=== PATIENT | male | born 1970 | race Two or more races ===

== ENCOUNTER 2018-12-07 10:19 | Day surgery (SDC) | payer MEDICAID ==
[~2018-12-07] VITALS: Ht 180.3 cm; Wt 132.7 kg
[2018-12-07 10:28] VITALS: BP 131/67
[2018-12-07] MEDS ORDERED: MIDAZolam 5mg/5ml vial ONE (10:33)
[2018-12-07] MEDS ORDERED: fentaNYL/PF 50MCG/1 ML 2ML syringe ONE (10:33)
[2018-12-07] MEDS ORDERED: LIDOcaine Viscous 15ml cup ONE (10:33)
[2018-12-07] MEDS ORDERED: NO HOME MEDS (10:39)
[2018-12-07 10:58] VITALS: BP 121/79
[2018-12-07 11:08] VITALS: BP 117/73
[2018-12-07 11:18] VITALS: BP 110/60
[2018-12-07 11:28] VITALS: BP 110/72
== END 2018-12-07 11:30 | disposition home or self-care (01) ==
LOC: GI LAB 10:19
PROVIDERS: ATTEND Internal Medicine Gastroenterology
DX: I85.00 Esophageal varices without bleeding (principal); K22.8 Other specified diseases of esophagus; K76.6 Portal hypertension; K31.89 Other diseases of stomach and duodenum
CPT/HCPCS: 43244; 99152; J2250; J3010; J7030; A4620

== ENCOUNTER 2020-03-21 10:45 | Emergency (ER) | payer MEDICAID ==
[~2020-03-21] VITALS: Ht 180.3 cm; Wt 160.0 kg
[~2020-03-21 10:45] MED LIST: NO HOME MEDS
[2020-03-21 10:51] VITALS: BP 145/76
[2020-03-21] MEDS ORDERED: PENI500T2 PO (11:13)
== END 2020-03-21 11:26 | disposition home or self-care (01) ==
LOC: ER 10:46
DX: K02.9 Dental caries, unspecified (principal); F12.90 Cannabis use, unspecified, uncomplicated; Z79.899 Other long term (current) drug therapy
CPT/HCPCS: 99283

== ENCOUNTER 2021-12-23 09:00 | Emergency (ER) | payer MEDICAID ==
[~2021-12-23] VITALS: Ht 180.3 cm; Wt 146.8 kg
[2021-12-23 09:10] VITALS: BP 133/75
[2021-12-23] MEDS ORDERED: KEN0.1O TP (12:24)
== END 2021-12-23 12:43 | disposition home or self-care (01) ==
LOC: ER 09:00
DX: L23.9 Allergic contact dermatitis, unspecified cause (principal); D64.9 Anemia, unspecified; F12.10 Cannabis abuse, uncomplicated; Z87.19 Personal history of other diseases of the digestive system
CPT/HCPCS: 99283

== ENCOUNTER 2022-03-07 09:34 | Day surgery (SDC) | payer MEDICAID ==
[~2022-03-07] VITALS: Ht 180.3 cm; Wt 143.0 kg
[2022-03-07] MEDS ORDERED: fentaNYL/PF 50MCG/1 ML 2ML syringe ONE (09:38)
[2022-03-07] MEDS ORDERED: LIDOcaine Viscous 15ml cup ONE (09:38)
[2022-03-07] MEDS ORDERED: MIDAZolam 1 MG/ML 5ML VIAL ONE (09:38)
[2022-03-07 09:50] VITALS: BP 119/83
[2022-03-07 11:12] VITALS: BP 126/64
[2022-03-07 11:22] VITALS: BP 131/63
[2022-03-07 11:27] VITALS: BP 116/77
[2022-03-07 11:32] VITALS: BP 126/70
== END 2022-03-07 11:42 | disposition home or self-care (01) ==
LOC: GI LAB 09:34
PROVIDERS: ATTEND Internal Medicine Gastroenterology
DX: I85.00 Esophageal varices without bleeding (principal); K76.6 Portal hypertension; K31.89 Other diseases of stomach and duodenum
CPT/HCPCS: 43244; 99152; J2250; J3010; J7030; Z7512; A4620

== ENCOUNTER 2023-11-04 13:42 | Emergency (ER) | payer MEDICAID ==
[~2023-11-04] VITALS: Ht 180.3 cm; Wt 143.2 kg
[2023-11-04 14:14] VITALS: BP 117/73; PULSE 94; RESP 18; TEMP 98; O2SAT 98
[2023-11-04] MEDS: erythromycin ophthalmic ointment 1gm tube RIGHTEYE ONE (17:10)
[2023-11-04] MEDS: proparacaine 0.5% ophthalmic drops 15ml EACHEYE ONE (18:09)
[2023-11-04] MEDS: fluorescein sod 1mg ophthalmic strip RIGHTEYE ONE (18:10)
== END 2023-11-04 18:20 | disposition home or self-care (01) ==
LOC: ER 13:42
DX: H11.31 Conjunctival hemorrhage, right eye (principal); F12.90 Cannabis use, unspecified, uncomplicated
CPT/HCPCS: 99283

== ENCOUNTER → 2024-01-30 | Outpatient (CLI) | payer MEDICAID | END | disposition home or self-care (01) | LOC: RAD 08:08 | PROVIDERS: ATTEND Nurse Practitioner Family | DX: R16.1 Splenomegaly, not elsewhere classified (principal); K74.60 Unspecified cirrhosis of liver | CPT/HCPCS: 76700 ==

== ENCOUNTER 2024-04-28 16:56 | Inpatient (IN) | payer MEDICAID ==
[~2024-04-28] VITALS: Ht 180.3 cm; Wt 133.8 kg
[2024-04-28 17:47] LABS: BASOPHILS # (AUTO) 0.1 X10'3 (0-0.2); BASOPHILS % (AUTO) 1.4 % (0-1); EOSINOPHILS # (AUTO) 0.1 X10'3 (0-0.9); EOSINOPHILS % (AUTO) 0.7 % (0-6); HEMATOCRIT 40.1 % (42.0-52.0); HEMOGLOBIN 13.8 g/dl (14.0-17.9); LYMPHOCYTES # (AUTO) 0.7 X10'3 (1.1-4.8); LYMPHOCYTES % (AUTO) 8.7 % (21-51); MEAN CORPUSCULAR HEMOGLOBIN 35.3 PG (27.0-31.0); MEAN CORPUSCULAR HGB CONC 34.4 g/dL (33.0-36.5); MEAN CORPUSCULAR VOLUME 102.4 FL (78-98); MEAN PLATELET VOLUME 10.2 FL (7.4-10.4); MONOCYTES # (AUTO) 0.6 X10'3 (0-0.9); MONOCYTES % (AUTO) 7.9 % (2-12); NEUTROPHILS # (AUTO) 6.5 X10'3 (1.8-7.7); NEUTROPHILS % (AUTO) 81.3 % (42-75); RED BLOOD COUNT 3.91 X10'6 (4.70-6.10); RED CELL DISTRIBUTION WIDTH 15.7 % (11.5-14.5)
[2024-04-28 18:01] LABS: PLATELET COUNT 45 X10'3 (140-440)
[2024-04-28 18:08] LABS: ALANINE AMINOTRANSFERASE 32 U/L (12-78); ALBUMIN 2.4 G/DL (3.4-5.0); ALKALINE PHOSPHATASE 134 IU/L (46-116); ANION GAP 6 (8-16); BILIRUBIN,TOTAL 8.8 MG/DL (0.1-1.0); BLOOD UREA NITROGEN 13 MG/DL (7-18); BUN/CREATININE RATIO 22.8 (10.0-20.0); CHLORIDE 102 MMOL/L (99-107); CREATININE 0.57 MG/DL (0.60-1.10); GLUCOSE 128 MG/DL (70-104); SODIUM 131 MMOL/L (135-145); TOTAL CARBON DIOXIDE 23.1 MMOL/L (24-32); eCRCL 163 ML/MIN; eGFR > 90 ML/MIN
[2024-04-28 18:09] LABS: ALBUMIN/GLOBULIN RATIO 0.5 (1.1-1.5); ASPARTATE AMINO TRANSFERASE 56 U/L (10-37); POTASSIUM 4.7 MMOL/L (3.5-5.1); TOTAL PROTEIN 6.9 G/DL (6.4-8.2)
[2024-04-28 18:24] LABS: BILIRUBIN,URINE MODERATE (Neg); CLARITY,URINE CLOUDY (Clear); COLOR,URINE YELLOW (Yellow); GLUCOSE, URINE 100 mg/dl (Neg); KETONES,URINE TRACE mg/dl (Neg); LEUKOCYTE ESTERASE ,URINE NEGATIVE (Neg); OCCULT BLOOD,URINE TRACE-INTACT (Neg); PH,URINE 5.5 (4.8-8.0); PROTEIN,URINE 30 mg/dl (Neg)
[2024-04-28 18:30] LABS: NITRITES, URINE NEGATIVE (Neg); UA COLLECTION TYPE URINAL
[2024-04-28 18:31] LABS: MUCUS STRANDS MANY /LPF (Neg); SQUAMOUS EPITHELIAL CELL,UR MODERATE /LPF (FEW)
[2024-04-28 18:33] LABS: BACTERIA,URINE FEW /HPF (Neg); RBC,URINE 0-2 /HPF (0-2)
[2024-04-28] MEDS: LIDOcaine 1% W/epiNEPHrine 1:100,000 20ml vial SQ ONE (18:52)
[2024-04-28] MEDS: LIDOcaine 1% w/epiNEPHrine 1:200,000 30ml vial SQ ONE (18:58)
[2024-04-28] MEDS: piperacillin/tazo 3.375gm/50ml 50 ML IV SCH (19:36)
[2024-04-28 20:09] LABS: BFAPPEAR HAZY; BFCOLOR YELLOW; BFSOURCE OTHER; BFVOLUME 2 ML; LYMPHOCYTES,BODY FLUID 14 %; MONOCYTES,BODY FLUID 21 %; NEUTROPHILS,BODY FLUID 65 %
[2024-04-28 20:16] LABS: BF MESOTHELIAL CELLS MODERATE; BF RBC COUNT 2225 /CU MM; BF WBC COUNT 1885 /CU MM (0-1000)
[2024-04-28] MEDS: piperacillin/tazo 3.375gm/50ml 50 ML IV ONE (20:20)
[2024-04-28] MEDS ORDERED: acetaminophen 325mg tablet PO PRN (20:40)
[2024-04-28] MEDS ORDERED: HYDROcodone/acetaminophen 5mg/325mg tablet PO PRN (20:40)
[2024-04-28] MEDS ORDERED: mag hydrox/Alum hydrox/simeth 30ml oral suspension PO PRN (20:40)
[2024-04-28] MEDS ORDERED: potassium Cl 40MEQ/1/2NS 520ml 520 ML IV PRN (20:40)
[2024-04-28] MEDS ORDERED: magnesium sulf-water 2g/50mL 50 ML IV PRN (20:40)
[2024-04-28] MEDS ORDERED: magnesium hydroxide 30ml (MOM) UD suspension PO PRN (20:40)
[2024-04-28] MEDS ORDERED: potassium Cl 20 mEq SR tablet PO PRN ×2 (20:40)
[2024-04-28] MEDS ORDERED: magnesium sulf-water 4G/100mL 100 ML IV PRN (20:40)
[2024-04-28] MEDS: ondansetron/PF 4mg/2ml inj IV PRN (21:35)
[2024-04-28 21:37] LABS: APTT 36 SECONDS (22-32); INR 1.6 INR; PROTHROMBIN TIME 16.1 SECONDS (9.0-12.0)
[2024-04-28 22:10] LABS: HEMOGLOBIN A1C 4.7 % (4.5-6.2)
[2024-04-28] MEDS: morphine 2 MG/ML inj. syringe IV PRN (22:11)
[2024-04-28 22:16] LABS: MAGNESIUM 1.5 MG/DL (1.5-2.4)
[2024-04-29 02:31] LABS: NEUTROPHILS # (AUTO) 4.6 X10'3 (1.8-7.7)
[2024-04-29 02:33] LABS: BASOPHILS % (AUTO) 0.5 % (0-1); EOSINOPHILS % (AUTO) 0.8 % (0-6); HEMATOCRIT 34.5 % (42.0-52.0); LYMPHOCYTES # (AUTO) 0.6 X10'3 (1.1-4.8); LYMPHOCYTES % (AUTO) 10.7 % (21-51); MEAN CORPUSCULAR HGB CONC 34.9 g/dL (33.0-36.5); MEAN CORPUSCULAR VOLUME 100.4 FL (78-98); MEAN PLATELET VOLUME 9.7 FL (7.4-10.4); MONOCYTES # (AUTO) 0.7 X10'3 (0-0.9); MONOCYTES % (AUTO) 11.2 % (2-12); NEUTROPHILS % (AUTO) 76.8 % (42-75); RED BLOOD COUNT 3.44 X10'6 (4.70-6.10); RED CELL DISTRIBUTION WIDTH 15.8 % (11.5-14.5); WHITE BLOOD COUNT 6.1 X10'3 (4.5-11.0)
[2024-04-29 02:39] LABS: PLATELET COUNT 34 X10'3 (140-440)
[2024-04-29 02:40] LABS: ALANINE AMINOTRANSFERASE 23 U/L (12-78); ALBUMIN 2.2 G/DL (3.4-5.0); ALKALINE PHOSPHATASE 107 IU/L (46-116); ANION GAP -2 (8-16); ASPARTATE AMINO TRANSFERASE 34 U/L (10-37); BLOOD UREA NITROGEN 13 MG/DL (7-18); BUN/CREATININE RATIO 18.8 (10.0-20.0); CALCIUM 7.3 MG/DL (8.5-10.1); CHLORIDE 103 MMOL/L (99-107); CREATININE 0.69 MG/DL (0.60-1.10); GLUCOSE 130 MG/DL (70-104); HDL CHOLESTEROL 31 MG/DL (35-60); LDL CHOLESTEROL 42 MG/DL (50-100); MAGNESIUM 1.2 MG/DL (1.5-2.4); POTASSIUM 4.2 MMOL/L (3.5-5.1); SODIUM 132 MMOL/L (135-145); TOTAL CARBON DIOXIDE 30.7 MMOL/L (24-32); eCRCL 135 ML/MIN; eGFR > 90 ML/MIN
[2024-04-29 02:44] LABS: ALBUMIN/GLOBULIN RATIO 0.6 (1.1-1.5); CHOL/HDL RATIO 2.5 (0.00-4.99); CHOLESTEROL 78 MG/DL (0-200); TOTAL PROTEIN 6.1 G/DL (6.4-8.2); TRIGLYCERIDES 53 MG/DL (20-135)
[2024-04-29] MEDS: piperacillin/tazo 3.375gm/50ml 50 ML IV SCH (04:25)
[2024-04-29] MEDS: albumin (human) 25% 100ml IV 100 ML IV SCH (06:31)
[2024-04-29 07:05] VITALS: BP 116/82; PULSE 99; RESP 17; TEMP 97.8; O2SAT 95
[2024-04-29] MEDS: K and/or MAG REPLACEMENT MC SCH (08:00)
[2024-04-29] MEDS: docusate sod 100mg capsule PO SCH (08:00)
[2024-04-29] MEDS ORDERED: piperacillin/tazo 3.375gm/50ml 50 ML IV SCH (08:00)
[2024-04-29] MEDS: magnesium Cl slow-release 64mg tablet PO PRN (08:33)
[2024-04-29 09:26] LABS: ETHANOL < 10 MG/DL (<10)
[2024-04-29 10:00] VITALS: BP 107/58; PULSE 102; RESP 15; TEMP 97.9; O2SAT 94
[2024-04-29] MEDS: albumin (human) 25% 100ml IV 100 ML IV ONE (10:59)
[2024-04-29] MEDS: furosemide 40mg tablet PO SCH (11:14)
[2024-04-29 18:00] VITALS: BP 100/50; PULSE 103; RESP 18; TEMP 97.8; O2SAT 95
[2024-04-29 20:00] VITALS: RESP 16; O2SAT 98
[2024-04-29 22:00] VITALS: BP 112/68; PULSE 110; RESP 16; TEMP 97.8; O2SAT 98
[2024-04-30 03:09] LABS: URINE AMPHETAMINE SCREEN NEGATIVE (Neg); URINE BARBITUATE SCREEN NEGATIVE (Neg); URINE BENZODIAZEPINES SCREEN NEGATIVE (Neg); URINE CANNABINOID SCREEN POSITIVE (Neg); URINE COCAINE SCREEN NEGATIVE (Neg); URINE METHADONE SCREEN NEGATIVE (Neg); URINE OPIATE SCREEN NEGATIVE (Neg); URINE PHENCYCLIDINE SCREEN NEGATIVE (Neg)
[2024-04-30 06:00] VITALS: BP 116/67; PULSE 99; RESP 16; TEMP 98.5; O2SAT 95
[2024-04-30 07:51] LABS: BASOPHILS % (AUTO) 0.7 % (0-1); EOSINOPHILS # (AUTO) 0.1 X10'3 (0-0.9); HEMOGLOBIN 11.6 g/dl (14.0-17.9); LYMPHOCYTES # (AUTO) 0.6 X10'3 (1.1-4.8); MONOCYTES # (AUTO) 0.4 X10'3 (0-0.9); NEUTROPHILS # (AUTO) 2.2 X10'3 (1.8-7.7); WHITE BLOOD COUNT 3.3 X10'3 (4.5-11.0)
[2024-04-30 07:53] LABS: EOSINOPHILS % (AUTO) 2.8 % (0-6); HEMATOCRIT 33.6 % (42.0-52.0); LYMPHOCYTES % (AUTO) 16.7 % (21-51); MEAN CORPUSCULAR HEMOGLOBIN 35.1 PG (27.0-31.0); MEAN CORPUSCULAR HGB CONC 34.4 g/dL (33.0-36.5); MEAN CORPUSCULAR VOLUME 101.9 FL (78-98); MEAN PLATELET VOLUME 10.1 FL (7.4-10.4); MONOCYTES % (AUTO) 12.3 % (2-12); NEUTROPHILS % (AUTO) 67.5 % (42-75); RED CELL DISTRIBUTION WIDTH 15.8 % (11.5-14.5)
[2024-04-30 08:06] LABS: PLATELET COUNT 39 X10'3 (140-440)
[2024-04-30 08:15] LABS: ALANINE AMINOTRANSFERASE 19 U/L (12-78); ALBUMIN 2.7 G/DL (3.4-5.0); ALKALINE PHOSPHATASE 96 IU/L (46-116); ANION GAP 4 (8-16); ASPARTATE AMINO TRANSFERASE 31 U/L (10-37); BILIRUBIN,TOTAL 4.9 MG/DL (0.1-1.0); BLOOD UREA NITROGEN 11 MG/DL (7-18); BUN/CREATININE RATIO 17.5 (10.0-20.0); CALCIUM 7.6 MG/DL (8.5-10.1); CHLORIDE 102 MMOL/L (99-107); CREATININE 0.63 MG/DL (0.60-1.10); GLUCOSE 100 MG/DL (70-104); MAGNESIUM 1.8 MG/DL (1.5-2.4); POTASSIUM 3.9 MMOL/L (3.5-5.1); SODIUM 133 MMOL/L (135-145); TOTAL CARBON DIOXIDE 27.1 MMOL/L (24-32); eCRCL 148 ML/MIN; eGFR > 90 ML/MIN
[2024-04-30 08:17] LABS: ALBUMIN/GLOBULIN RATIO 0.8 (1.1-1.5); PHOSPHORUS 2.6 MG/DL (2.3-4.5); TOTAL PROTEIN 6.1 G/DL (6.4-8.2)
[2024-04-30 08:19] LABS: OCCULT BLOOD STOOL NEGATIVE (Neg)
[2024-04-30 10:00] VITALS: BP 123/69; PULSE 100; RESP 16; TEMP 98.4; O2SAT 93
[2024-04-30 18:00] VITALS: BP 115/65; PULSE 104; RESP 17; TEMP 99.2; O2SAT 96
[2024-04-30 20:00] VITALS: RESP 16; O2SAT 95
[2024-05-01 06:00] VITALS: BP 124/65; PULSE 91; RESP 16; TEMP 98.8; O2SAT 96
[2024-05-01 08:00] VITALS: RESP 16; O2SAT 96
[2024-05-01 08:34] LABS: BASOPHILS % (AUTO) 0.9 % (0-1); EOSINOPHILS # (AUTO) 0.1 X10'3 (0-0.9); EOSINOPHILS % (AUTO) 3.5 % (0-6); HEMATOCRIT 35.3 % (42.0-52.0); LYMPHOCYTES # (AUTO) 0.5 X10'3 (1.1-4.8); LYMPHOCYTES % (AUTO) 21.3 % (21-51); MEAN CORPUSCULAR HEMOGLOBIN 34.5 PG (27.0-31.0); MEAN CORPUSCULAR VOLUME 101.4 FL (78-98); MEAN PLATELET VOLUME 10.2 FL (7.4-10.4); MONOCYTES # (AUTO) 0.4 X10'3 (0-0.9); MONOCYTES % (AUTO) 16.6 % (2-12); NEUTROPHILS # (AUTO) 1.5 X10'3 (1.8-7.7); NEUTROPHILS % (AUTO) 57.7 % (42-75); RED BLOOD COUNT 3.48 X10'6 (4.70-6.10); RED CELL DISTRIBUTION WIDTH 15.8 % (11.5-14.5); WHITE BLOOD COUNT 2.5 X10'3 (4.5-11.0)
[2024-05-01 08:41] LABS: PLATELET COUNT 40 X10'3 (140-440)
[2024-05-01 09:01] LABS: ALANINE AMINOTRANSFERASE 23 U/L (12-78); ALBUMIN 2.5 G/DL (3.4-5.0); ALBUMIN/GLOBULIN RATIO 0.7 (1.1-1.5); ALKALINE PHOSPHATASE 109 IU/L (46-116); ANION GAP 6 (8-16); ASPARTATE AMINO TRANSFERASE 43 U/L (10-37); BILIRUBIN,TOTAL 3.2 MG/DL (0.1-1.0); BLOOD UREA NITROGEN 8 MG/DL (7-18); BUN/CREATININE RATIO 14.5 (10.0-20.0); CALCIUM 7.9 MG/DL (8.5-10.1); CHLORIDE 102 MMOL/L (99-107); CREATININE 0.55 MG/DL (0.60-1.10); GLUCOSE 92 MG/DL (70-104); MAGNESIUM 1.6 MG/DL (1.5-2.4); PHOSPHORUS 3.1 MG/DL (2.3-4.5); POTASSIUM 3.7 MMOL/L (3.5-5.1); SODIUM 135 MMOL/L (135-145); TOTAL CARBON DIOXIDE 27.2 MMOL/L (24-32); eCRCL 169 ML/MIN; eGFR > 90 ML/MIN
[2024-05-01 10:32] LABS: ANISOCYTOSIS 1+; PLATELET ESTIMATE DECREASED; TOTAL CELLS COUNTED 100
[2024-05-01] MEDS: normal saline 500ml IV soln 500 ML IV SCH (17:05)
[2024-05-01 18:00] VITALS: BP 113/64; PULSE 95; RESP 16; TEMP 97.2; O2SAT 96
[2024-05-01 22:00] VITALS: BP 108/67; PULSE 94; RESP 19; TEMP 98.8; O2SAT 94
[2024-05-02 05:59] VITALS: BP 110/66; PULSE 89; RESP 16; TEMP 98; O2SAT 98
[2024-05-02 06:38] LABS: BASOPHILS % (AUTO) 1.5 % (0-1); EOSINOPHILS # (AUTO) 0.1 X10'3 (0-0.9); EOSINOPHILS % (AUTO) 4.3 % (0-6); HEMATOCRIT 35.1 % (42.0-52.0); HEMOGLOBIN 12.1 g/dl (14.0-17.9); LYMPHOCYTES # (AUTO) 0.7 X10'3 (1.1-4.8); LYMPHOCYTES % (AUTO) 26.6 % (21-51); MEAN CORPUSCULAR HGB CONC 34.4 g/dL (33.0-36.5); MEAN CORPUSCULAR VOLUME 101.7 FL (78-98); MEAN PLATELET VOLUME 9.8 FL (7.4-10.4); MONOCYTES # (AUTO) 0.4 X10'3 (0-0.9); MONOCYTES % (AUTO) 14.3 % (2-12); NEUTROPHILS # (AUTO) 1.4 X10'3 (1.8-7.7); NEUTROPHILS % (AUTO) 53.3 % (42-75); RED BLOOD COUNT 3.45 X10'6 (4.70-6.10); WHITE BLOOD COUNT 2.7 X10'3 (4.5-11.0)
[2024-05-02 06:40] LABS: PLATELET COUNT 45 X10'3 (140-440)
[2024-05-02 06:43] LABS: ALANINE AMINOTRANSFERASE 25 U/L (12-78); ALBUMIN 2.4 G/DL (3.4-5.0); ALBUMIN/GLOBULIN RATIO 0.7 (1.1-1.5); ALKALINE PHOSPHATASE 125 IU/L (46-116); ANION GAP 3 (8-16); ASPARTATE AMINO TRANSFERASE 51 U/L (10-37); BILIRUBIN,TOTAL 2.7 MG/DL (0.1-1.0); BLOOD UREA NITROGEN 10 MG/DL (7-18); BUN/CREATININE RATIO 15.9 (10.0-20.0); CALCIUM 7.8 MG/DL (8.5-10.1); CHLORIDE 104 MMOL/L (99-107); CREATININE 0.63 MG/DL (0.60-1.10); GLUCOSE 97 MG/DL (70-104); MAGNESIUM 1.7 MG/DL (1.5-2.4); PHOSPHORUS 3.6 MG/DL (2.3-4.5); POTASSIUM 3.7 MMOL/L (3.5-5.1); SODIUM 135 MMOL/L (135-145); TOTAL CARBON DIOXIDE 28.1 MMOL/L (24-32); eCRCL 148 ML/MIN; eGFR > 90 ML/MIN
[2024-05-02 07:34] LABS: ANISOCYTOSIS 1+; PLATELET ESTIMATE DECREASED; TOTAL CELLS COUNTED 100
[2024-05-02 08:00] VITALS: RESP 16; O2SAT 94
[2024-05-02] MEDS ORDERED: METR-159 PO (09:07)
[2024-05-02] MEDS ORDERED: CIPR250T4 PO (09:07)
[2024-05-02] MEDS ORDERED: FURO40TA4 PO (09:08)
== END 2024-05-02 10:50 | disposition home or self-care (01) | DRG 248 ==
LOC: ER 16:56 → ED HOLD 20:45 → EDBEDREQ 04-29 05:26 → ORTHO 4S 04-29 06:45
PROVIDERS: ADMIT Internal Medicine Pulmonary Disease; ATTEND Family Medicine
PROC: 0W9G3ZZ Drainage of Peritoneal Cavity, Percutaneous Approach (ICD-10-PCS; principal; 2024-04-30)
DX: K65.2 Spontaneous bacterial peritonitis (principal); D69.6 Thrombocytopenia, unspecified; K70.31 Alcoholic cirrhosis of liver with ascites; E87.1 Hypo-osmolality and hyponatremia; K76.6 Portal hypertension; B19.20 Unspecified viral hepatitis C without hepatic coma; E80.6 Other disorders of bilirubin metabolism; F10.90 Alcohol use, unspecified, uncomplicated; Y90.0 Blood alcohol level of less than 20 mg/100 ml; F12.90 Cannabis use, unspecified, uncomplicated
CPT/HCPCS: 36415; 71045; 76700; 76705; 80053; 80061; 80305; 80320; 81001; 82042; 82272; 83036; 83605; 83690; 83735; 83880; 84100; 84145; 85007; 85025; 85610; 85730; 86705; 86803; 87040; 87070; 87077; 87081; 87088; 87186; 87340; 87517; 87522; 89051; 99285; G0378; J2270; J2405; J2543; J7040; P9047

== ENCOUNTER 2024-06-02 07:24 | Emergency (ER) | payer MEDICAID ==
[~2024-06-02] VITALS: Ht 180.3 cm; Wt 136.8 kg
[~2024-06-02 07:24] MED LIST changes: +CIPR250T4 PO; +FURO40TA4 PO
[2024-06-02 08:46] LABS: ALANINE AMINOTRANSFERASE 40 U/L (12-78); ALBUMIN 2.5 G/DL (3.4-5.0); ALKALINE PHOSPHATASE 163 IU/L (46-116); ANION GAP 6 (8-16); ASPARTATE AMINO TRANSFERASE 67 U/L (10-37); BILIRUBIN,TOTAL 4.3 MG/DL (0.1-1.0); BLOOD UREA NITROGEN 12 MG/DL (7-18); BUN/CREATININE RATIO 18.5 (10.0-20.0); CHLORIDE 104 MMOL/L (99-107); CREATININE 0.65 MG/DL (0.60-1.10); GLUCOSE 110 MG/DL (70-104); LIPASE 30 U/L (16-77); POTASSIUM 3.7 MMOL/L (3.5-5.1); SODIUM 136 MMOL/L (135-145); TOTAL CARBON DIOXIDE 25.8 MMOL/L (24-32); eCRCL 142 ML/MIN; eGFR > 90 ML/MIN
[2024-06-02 08:49] LABS: BASOPHILS % (AUTO) 1.2 % (0-1); EOSINOPHILS % (AUTO) 1.1 % (0-6); HEMATOCRIT 39.8 % (42.0-52.0); HEMOGLOBIN 13.5 g/dl (14.0-17.9); LYMPHOCYTES # (AUTO) 0.6 X10'3 (1.1-4.8); LYMPHOCYTES % (AUTO) 18.9 % (21-51); MEAN CORPUSCULAR HEMOGLOBIN 34.9 PG (27.0-31.0); MEAN CORPUSCULAR HGB CONC 33.8 g/dL (33.0-36.5); MEAN CORPUSCULAR VOLUME 103.3 FL (78-98); MEAN PLATELET VOLUME 10.2 FL (7.4-10.4); MONOCYTES # (AUTO) 0.2 X10'3 (0-0.9); NEUTROPHILS # (AUTO) 2.5 X10'3 (1.8-7.7); NEUTROPHILS % (AUTO) 72.8 % (42-75); RED BLOOD COUNT 3.85 X10'6 (4.70-6.10); RED CELL DISTRIBUTION WIDTH 16.1 % (11.5-14.5); WHITE BLOOD COUNT 3.4 X10'3 (4.5-11.0)
[2024-06-02 08:52] LABS: PLATELET COUNT 41 X10'3 (140-440)
[2024-06-02 08:56] LABS: ALBUMIN/GLOBULIN RATIO 0.5 (1.1-1.5); TOTAL PROTEIN 7.3 G/DL (6.4-8.2)
[2024-06-02 09:17] LABS: APTT 30 SECONDS (22-32); INR 1.5 INR; PROTHROMBIN TIME 15.2 SECONDS (9.0-12.0)
[2024-06-02 10:34] LABS: BILIRUBIN,URINE NEGATIVE (Neg); CLARITY,URINE SLIGHTLY CLOUDY (Clear); COLOR,URINE YELLOW (Yellow); GLUCOSE, URINE NEGATIVE (Neg); KETONES,URINE NEGATIVE (Neg); LEUKOCYTE ESTERASE ,URINE NEGATIVE (Neg); NITRITES, URINE NEGATIVE (Neg); OCCULT BLOOD,URINE NEGATIVE (Neg); PH,URINE 6.5 (4.8-8.0); PROTEIN,URINE NEGATIVE (Neg); UROBILINOGEN,URINE 0.2 E.U/dL (0.2-1.0)
[2024-06-02 10:43] LABS: UA COLLECTION TYPE CLN CATCH MIDSTREAM
[2024-06-02 10:45] LABS: BACTERIA,URINE FEW /HPF (Neg); MUCUS STRANDS MODERATE /LPF (Neg); RBC,URINE 0-2 /HPF (0-2); SQUAMOUS EPITHELIAL CELL,UR MANY /LPF (FEW); WBC,URINE 0-4 /HPF (0-4)
[2024-06-02 11:39] VITALS: BP 138/78; PULSE 78; RESP 16; TEMP 98.1; O2SAT 97
[2024-06-02 13:00] LABS: OCCULT BLOOD STOOL NEGATIVE (Neg)
== END 2024-06-02 11:40 | disposition home or self-care (01) ==
LOC: ER 07:25
DX: K74.69 Other cirrhosis of liver (principal); D64.9 Anemia, unspecified; F12.90 Cannabis use, unspecified, uncomplicated; Z72.89 Other problems related to lifestyle; Z79.2 Long term (current) use of antibiotics; Z79.899 Other long term (current) drug therapy
CPT/HCPCS: 36415; 80053; 81001; 82272; 83690; 85025; 85610; 85730; 99283; J7030

== ENCOUNTER 2024-07-21 09:12 | Emergency (ER) | payer MEDICAID ==
[~2024-07-21] VITALS: Ht 180.3 cm; Wt 134.6 kg
[2024-07-21 09:14] VITALS: TEMP 97.8
[2024-07-21] MEDS: ondansetron 4mg rapidly disintigrating tab PO ONE (09:56)
[2024-07-21] MEDS: oxyCODONE SR 10mg (sust. release) tab PO ONE (09:56)
[2024-07-21] MEDS: ketorolac trometh 30MG/ML vial 30 MG/ML VIAL IM ONE (09:57)
[2024-07-21] MEDS ORDERED: OXYC-658 PO (10:01)
[2024-07-21 10:16] VITALS: BP 109/69; PULSE 103; RESP 18; O2SAT 96
== END 2024-07-21 10:17 | disposition home or self-care (01) ==
LOC: ER 09:12
DX: R10.9 Unspecified abdominal pain (principal); F12.90 Cannabis use, unspecified, uncomplicated; Z79.1 Long term (current) use of non-steroidal anti-inflammatories (NSAID); Z79.899 Other long term (current) drug therapy; V89.2XXA Person injured in unspecified motor-vehicle accident, traffic, initial encounter; Y93.89 Activity, other specified; Y92.410 Unspecified street and highway as the place of occurrence of the external cause; Y99.8 Other external cause status
CPT/HCPCS: 96372; 99283; J1885

== ENCOUNTER 2024-08-17 11:28 | Emergency (ER) | payer MEDICAID ==
[~2024-08-17] VITALS: Ht 180.3 cm; Wt 126.7 kg
[2024-08-17 11:47] VITALS: BP 117/76; PULSE 88; RESP 16; TEMP 97.4; O2SAT 98
[2024-08-17 12:24] LABS: BASOPHILS % (AUTO) 0.6 % (0-1); EOSINOPHILS % (AUTO) 0.7 % (0-6); HEMATOCRIT 38.6 % (42.0-52.0); HEMOGLOBIN 13.8 g/dl (14.0-17.9); LYMPHOCYTES # (AUTO) 0.5 X10'3 (1.1-4.8); LYMPHOCYTES % (AUTO) 10.6 % (21-51); MEAN CORPUSCULAR HEMOGLOBIN 36.6 PG (27.0-31.0); MEAN CORPUSCULAR HGB CONC 35.7 g/dL (33.0-36.5); MEAN CORPUSCULAR VOLUME 102.3 FL (78-98); MEAN PLATELET VOLUME 10.2 FL (7.4-10.4); MONOCYTES # (AUTO) 0.3 X10'3 (0-0.9); MONOCYTES % (AUTO) 7.2 % (2-12); NEUTROPHILS # (AUTO) 3.8 X10'3 (1.8-7.7); NEUTROPHILS % (AUTO) 80.9 % (42-75); RED BLOOD COUNT 3.77 X10'6 (4.70-6.10); RED CELL DISTRIBUTION WIDTH 16.1 % (11.5-14.5); WHITE BLOOD COUNT 4.7 X10'3 (4.5-11.0)
[2024-08-17 12:48] LABS: ALANINE AMINOTRANSFERASE 45 U/L (12-78); ALBUMIN 2.3 G/DL (3.4-5.0); ASPARTATE AMINO TRANSFERASE 73 U/L (10-37); BILIRUBIN,TOTAL 5.8 MG/DL (0.1-1.0); TOTAL CARBON DIOXIDE 26.2 MMOL/L (24-32)
[2024-08-17 12:49] LABS: PRO BRAIN NATRIURETIC PEPTIDE 32 PG/ML (0-125)
[2024-08-17 12:56] LABS: ALBUMIN/GLOBULIN RATIO 0.4 (1.1-1.5); ALKALINE PHOSPHATASE 209 IU/L (46-116); ANION GAP 7 (8-16); BLOOD UREA NITROGEN 13 MG/DL (7-18); CHLORIDE 101 MMOL/L (99-107); CREATININE 0.59 MG/DL (0.60-1.10); GLUCOSE 105 MG/DL (70-104); POTASSIUM 4.1 MMOL/L (3.5-5.1); SODIUM 134 MMOL/L (135-145); TOTAL PROTEIN 8.1 G/DL (6.4-8.2); eCRCL 156 ML/MIN; eGFR > 90 ML/MIN
[2024-08-17 12:57] LABS: PLATELET COUNT 42 X10'3 (140-440)
[2024-08-17] MEDS ORDERED: FURO-150 PO (14:26)
[2024-08-17] MEDS ORDERED: iohexol 300mg/ml 100ml inj. ONE (14:33)
[2024-08-17 15:15] LABS: BASOPHILS % (AUTO) 0.7 % (0-1); HEMATOCRIT 38.2 % (42.0-52.0); HEMOGLOBIN 13.6 g/dl (14.0-17.9); LYMPHOCYTES # (AUTO) 0.5 X10'3 (1.1-4.8); LYMPHOCYTES % (AUTO) 10.2 % (21-51); MEAN CORPUSCULAR HEMOGLOBIN 36.3 PG (27.0-31.0); MEAN CORPUSCULAR HGB CONC 35.5 g/dL (33.0-36.5); MONOCYTES # (AUTO) 0.3 X10'3 (0-0.9); MONOCYTES % (AUTO) 6.4 % (2-12); NEUTROPHILS % (AUTO) 81.7 % (42-75); RED BLOOD COUNT 3.74 X10'6 (4.70-6.10); RED CELL DISTRIBUTION WIDTH 16.1 % (11.5-14.5); WHITE BLOOD COUNT 4.9 X10'3 (4.5-11.0)
[2024-08-17 15:20] LABS: PLATELET COUNT 41 X10'3 (140-440)
[2024-08-17 15:29] LABS: INR 1.5 INR; PROTHROMBIN TIME 15.6 SECONDS (9.0-12.0)
[2024-08-17 15:30] LABS: MAGNESIUM 1.7 MG/DL (1.5-2.4)
[2024-08-17] MEDS: CefTRIAXone 2gm/D5W 50ml BAG 50 ML IV ONE (19:16)
[2024-08-17] MEDS: azithromycin/NS 500mg/250ml 250 ML IV ONE (19:17)
== END 2024-08-17 21:36 | disposition short-term general hospital (02) ==
LOC: ER 11:29
DX: S27.329A Contusion of lung, unspecified, initial encounter (principal); Z79.899 Other long term (current) drug therapy; F12.90 Cannabis use, unspecified, uncomplicated; J94.2 Hemothorax; K74.60 Unspecified cirrhosis of liver; K76.6 Portal hypertension; Z79.2 Long term (current) use of antibiotics; X58.XXXA Exposure to other specified factors, initial encounter; Y93.89 Activity, other specified; Y92.89 Other specified places as the place of occurrence of the external cause; Y99.8 Other external cause status
CPT/HCPCS: 36415; 70450; 71045; 71250; 74176; 80053; 82140; 83690; 83735; 83880; 84484; 85025; 85610; 93005; 96365; 96368; 99291; J0456; J0696; A6258; A6449; Q9967

== ENCOUNTER 2024-08-20 17:40 | Emergency (ER) | payer MEDICAID ==
[~2024-08-20] VITALS: Ht 180.3 cm; Wt 131.4 kg
[~2024-08-20 17:40] MED LIST changes: +FURO-150 PO; -FURO40TA4 PO; -NO HOME MEDS
[2024-08-20 17:54] VITALS: TEMP 98.2
[2024-08-20 20:23] LABS: BASOPHILS % (AUTO) 0.8 % (0-1); EOSINOPHILS # (AUTO) 0.1 X10'3 (0-0.9); EOSINOPHILS % (AUTO) 1.5 % (0-6); HEMATOCRIT 36.2 % (42.0-52.0); HEMOGLOBIN 12.7 g/dl (14.0-17.9); LYMPHOCYTES # (AUTO) 0.5 X10'3 (1.1-4.8); LYMPHOCYTES % (AUTO) 11.9 % (21-51); MEAN CORPUSCULAR HEMOGLOBIN 35.9 PG (27.0-31.0); MEAN CORPUSCULAR HGB CONC 35.2 g/dL (33.0-36.5); MONOCYTES # (AUTO) 0.4 X10'3 (0-0.9); MONOCYTES % (AUTO) 9.1 % (2-12); NEUTROPHILS # (AUTO) 3.5 X10'3 (1.8-7.7); NEUTROPHILS % (AUTO) 76.7 % (42-75); RED BLOOD COUNT 3.54 X10'6 (4.70-6.10); RED CELL DISTRIBUTION WIDTH 15.8 % (11.5-14.5); WHITE BLOOD COUNT 4.5 X10'3 (4.5-11.0)
[2024-08-20 20:29] LABS: PLATELET COUNT 40 X10'3 (140-440)
[2024-08-20 20:49] LABS: ALANINE AMINOTRANSFERASE 42 U/L (12-78); ALBUMIN 2.1 G/DL (3.4-5.0); ALKALINE PHOSPHATASE 205 IU/L (46-116); ANION GAP 5 (8-16); ASPARTATE AMINO TRANSFERASE 66 U/L (10-37); BILIRUBIN,TOTAL 4.1 MG/DL (0.1-1.0); BLOOD UREA NITROGEN 14 MG/DL (7-18); BUN/CREATININE RATIO 26.9 (10.0-20.0); CALCIUM 7.8 MG/DL (8.5-10.1); CHLORIDE 103 MMOL/L (99-107); CREATININE 0.52 MG/DL (0.60-1.10); GLUCOSE 107 MG/DL (70-104); LIPASE 30 U/L (16-77); POTASSIUM 4.1 MMOL/L (3.5-5.1); SODIUM 134 MMOL/L (135-145); TOTAL CARBON DIOXIDE 26.2 MMOL/L (24-32); eCRCL 177 ML/MIN; eGFR > 90 ML/MIN
[2024-08-20 20:54] LABS: ALBUMIN/GLOBULIN RATIO 0.4 (1.1-1.5); TOTAL PROTEIN 7.5 G/DL (6.4-8.2)
[2024-08-20 21:25] LABS: INR 1.5 INR; PROTHROMBIN TIME 15.6 SECONDS (9.0-12.0)
[2024-08-20] MEDS ORDERED: FURO40TA4 PO (22:07)
[2024-08-20] MEDS ORDERED: SPIR50TA5 PO (22:07)
[2024-08-20 22:23] LABS: BILIRUBIN,URINE SMALL (Neg); CLARITY,URINE CLEAR (Clear); COLOR,URINE YELLOW (Yellow); GLUCOSE, URINE NEGATIVE (Neg); KETONES,URINE NEGATIVE (Neg); LEUKOCYTE ESTERASE ,URINE NEGATIVE (Neg); OCCULT BLOOD,URINE NEGATIVE (Neg); PH,URINE 6.5 (4.8-8.0); PROTEIN,URINE TRACE mg/dl (Neg); UROBILINOGEN,URINE 0.2 E.U/dL (0.2-1.0)
[2024-08-20] MEDS ORDERED: CEPH-585 PO (22:32)
[2024-08-20 22:48] VITALS: BP 112/74; PULSE 78; RESP 15; O2SAT 99
[2024-08-20] MEDS: cephalexin 250mg capsule PO ONE (22:48)
[2024-08-20 22:52] LABS: BACTERIA,URINE NONE SEEN /HPF (Neg); NITRITES, URINE NEGATIVE (Neg); RBC,URINE 0-2 /HPF (0-2); SQUAMOUS EPITHELIAL CELL,UR NONE SEEN /LPF (FEW); UA COLLECTION TYPE NON-SPECIFIED; WBC,URINE NONE SEEN /HPF (0-4)
== END 2024-08-20 22:50 | disposition home or self-care (01) ==
LOC: ER 17:41
DX: R18.8 Other ascites (principal); N39.0 Urinary tract infection, site not specified; F12.90 Cannabis use, unspecified, uncomplicated; Z79.2 Long term (current) use of antibiotics; Z79.899 Other long term (current) drug therapy
CPT/HCPCS: 36415; 49083; 80053; 81001; 83690; 85025; 85610; 99285

== ENCOUNTER 2024-08-25 18:34 | Emergency (ER) | payer MEDICAID ==
[~2024-08-25] VITALS: Ht 180.3 cm; Wt 117.0 kg
[~2024-08-25 18:34] MED LIST changes: +CEPH-585 PO; +FURO40TA4 PO; +SPIR50TA5 PO
[2024-08-25 18:35] VITALS: TEMP 97.5
[2024-08-25 19:12] LABS: EOSINOPHILS % (AUTO) 1.1 % (0-6); HEMOGLOBIN 13.3 g/dl (14.0-17.9); LYMPHOCYTES # (AUTO) 0.6 X10'3 (1.1-4.8); MONOCYTES # (AUTO) 0.4 X10'3 (0-0.9)
[2024-08-25 19:13] LABS: BASOPHILS % (AUTO) 0.7 % (0-1); HEMATOCRIT 37.2 % (42.0-52.0); LYMPHOCYTES % (AUTO) 16.5 % (21-51); MEAN CORPUSCULAR HEMOGLOBIN 36.4 PG (27.0-31.0); MEAN CORPUSCULAR HGB CONC 35.9 g/dL (33.0-36.5); MEAN CORPUSCULAR VOLUME 101.5 FL (78-98); MEAN PLATELET VOLUME 9.6 FL (7.4-10.4); MONOCYTES % (AUTO) 11.5 % (2-12); NEUTROPHILS # (AUTO) 2.6 X10'3 (1.8-7.7); NEUTROPHILS % (AUTO) 70.2 % (42-75); RED BLOOD COUNT 3.67 X10'6 (4.70-6.10); RED CELL DISTRIBUTION WIDTH 16.1 % (11.5-14.5); WHITE BLOOD COUNT 3.7 X10'3 (4.5-11.0)
[2024-08-25 19:21] LABS: PLATELET COUNT 38 X10'3 (140-440)
[2024-08-25 19:28] LABS: ALANINE AMINOTRANSFERASE 40 U/L (12-78); ALKALINE PHOSPHATASE 210 IU/L (46-116); ANION GAP 3 (8-16); ASPARTATE AMINO TRANSFERASE 65 U/L (10-37); BILIRUBIN,TOTAL 3.8 MG/DL (0.1-1.0); BLOOD UREA NITROGEN 19 MG/DL (7-18); BUN/CREATININE RATIO 31.1 (10.0-20.0); CALCIUM 8.1 MG/DL (8.5-10.1); CHLORIDE 102 MMOL/L (99-107); CREATININE 0.61 MG/DL (0.60-1.10); GLUCOSE 106 MG/DL (70-104); LIPASE 41 U/L (16-77); SODIUM 133 MMOL/L (135-145); TOTAL CARBON DIOXIDE 27.6 MMOL/L (24-32); eCRCL 151 ML/MIN; eGFR > 90 ML/MIN
[2024-08-25 19:29] LABS: ALBUMIN/GLOBULIN RATIO 0.4 (1.1-1.5); POTASSIUM 4.2 MMOL/L (3.5-5.1); TOTAL PROTEIN 7.7 G/DL (6.4-8.2)
[2024-08-25 21:08] LABS: BILIRUBIN,URINE NEGATIVE (Neg); CLARITY,URINE CLEAR (Clear); COLOR,URINE YELLOW (Yellow); GLUCOSE, URINE NEGATIVE (Neg); KETONES,URINE NEGATIVE (Neg); LEUKOCYTE ESTERASE ,URINE NEGATIVE (Neg); NITRITES, URINE NEGATIVE (Neg); OCCULT BLOOD,URINE NEGATIVE (Neg); PROTEIN,URINE NEGATIVE (Neg); UROBILINOGEN,URINE 0.2 E.U/dL (0.2-1.0)
[2024-08-25 21:13] LABS: UA COLLECTION TYPE CLN CATCH MIDSTREAM
[2024-08-25 21:26] VITALS: BP 122/73; PULSE 94; RESP 20; O2SAT 97
== END 2024-08-25 21:28 | disposition home or self-care (01) ==
LOC: ER 18:35
DX: R10.84 Generalized abdominal pain (principal); F10.90 Alcohol use, unspecified, uncomplicated; F12.90 Cannabis use, unspecified, uncomplicated; Y90.9 Presence of alcohol in blood, level not specified
CPT/HCPCS: 36415; 80053; 81003; 83690; 85025; 99283

== ENCOUNTER 2024-12-06 19:03 | Emergency (ER) | payer MEDICAID ==
[~2024-12-06] VITALS: Ht 180.3 cm; Wt 121.8 kg
[~2024-12-06 19:03] MED LIST changes: -FURO40TA4 PO
[2024-12-06 19:08] VITALS: TEMP 98.4
[2024-12-06 19:35] LABS: BASOPHILS % (AUTO) 0.8 % (0-1); EOSINOPHILS # (AUTO) 0.1 X10'3 (0-0.9); EOSINOPHILS % (AUTO) 1.2 % (0-6); HEMATOCRIT 36.9 % (42.0-52.0); HEMOGLOBIN 13.1 g/dl (14.0-17.9); LYMPHOCYTES # (AUTO) 0.6 X10'3 (1.1-4.8); LYMPHOCYTES % (AUTO) 13.4 % (21-51); MEAN CORPUSCULAR HGB CONC 35.5 g/dL (33.0-36.5); MEAN CORPUSCULAR VOLUME 101.5 FL (78-98); MEAN PLATELET VOLUME 10.2 FL (7.4-10.4); MONOCYTES # (AUTO) 0.4 X10'3 (0-0.9); MONOCYTES % (AUTO) 8.8 % (2-12); NEUTROPHILS # (AUTO) 3.3 X10'3 (1.8-7.7); NEUTROPHILS % (AUTO) 75.8 % (42-75); RED BLOOD COUNT 3.63 X10'6 (4.70-6.10); RED CELL DISTRIBUTION WIDTH 15.8 % (11.5-14.5); WHITE BLOOD COUNT 4.3 X10'3 (4.5-11.0)
[2024-12-06 19:36] VITALS: PULSE 88
[2024-12-06 19:36] LABS: BILIRUBIN,URINE NEGATIVE (Neg); CLARITY,URINE CLEAR (Clear); COLOR,URINE YELLOW (Yellow); GLUCOSE, URINE NEGATIVE (Neg); KETONES,URINE NEGATIVE (Neg); LEUKOCYTE ESTERASE ,URINE NEGATIVE (Neg); NITRITES, URINE NEGATIVE (Neg); OCCULT BLOOD,URINE NEGATIVE (Neg); PROTEIN,URINE NEGATIVE (Neg); UROBILINOGEN,URINE 0.2 E.U/dL (0.2-1.0)
--- NOTE | 2024-12-06 19:36 | Physician Documentation ---
History of Present Illness ~ General Chief Complaint: Abnormal Lab(s) Stated Complaint: HIGH AMONIA LEVELS Time Seen by MD: 19:31 Primary Medical Doctor: CHANA Morales History of Present Illness Initial Comments Patient presents to the emergency room for evaluation of abnormal labs. Patient was history of cirrhosis along with esophageal varices. His doctor had outpatient labs and noted that he add hyperammonemia therefore sent him in to be evaluated. He was currently at it was mental baseline confirmed by significant other at bedside. Patient does get paracentesis proximally one to 2 times a month last time one-week ago however he states he was already starting to feel full. No fevers. Currently on antibiotics by his liver specialist since August for when he developed bacterial peritonitis from a paracentesis. Medication Reconciliation Allergies: Coded Allergies: No Known Allergies (Unverified , 08/25/24) Scheduled Cephalexin*Monohydrate* (Keflex*), 2 CAP PO BID Ciprofloxacin HCl (Ciprofloxacin HCl), 1 TAB PO Q12H Furosemide* (Lasix*), 4.5 TAB PO BID, (Reported) Spironolactone (Spironolactone), 1 TAB PO BID Past Medical History Past Medical History: Cirrohsis, Anemia Past Surgical History: noncontributory Alcohol Use: Sober Drug Use: marijuana Lives In: Home Physical Exam Physical Exam Vital Signs: Temperature: 98.4, Heart Rate: 91, Respiratory Rate: 16, BP: 109/69, Pulse Oximetry: 95, Weight: 121.800 Oxygen Flow Rate: 0 Progress Results/Orders Results/Orders Orders - SHAHZAD PERES MD Cbc/Diff (12/06/24 19:17) Pathology Review (12/06/24 19:26) Completed Orders - SHAHZAD PERES MD Urinalysis, Cult If Indicated (12/06/24 19:17) Lipase (12/06/24 19:17) CMP (12/06/24 19:17) Ammonia (12/06/24 19:17) Vital Signs 12/06/24 12/06/24 19:08 19:36 Temp 98.4 Pulse 91 88 Resp 16 14 B/P (MAP) 109/69 116/75 (89) Pulse Ox 95 O2 Flow Rate 0 0 Laboratory Tests Test 12/06/24 19:26 5/5/25 19:30 White Blood Count 4.3 L Red Blood Count 3.63 L Hemoglobin 13.1 L Hematocrit 36.9 L Mean Corpuscular Volume 101.5 H Mean Corpuscular Hemoglobin 36.0 H Mean Corpuscular Hemoglobin Concent 35.5 Red Cell Distribution Width 15.8 H Platelet Count 35 *L Mean Platelet Volume 10.2 Neutrophils (%) (Auto) 75.8 H Lymphocytes (%) (Auto) 13.4 L Monocytes (%) (Auto) 8.8 Eosinophils (%) (Auto) 1.2 Basophils (%) (Auto) 0.8 Neutrophils # (Auto) 3.3 Lymphocytes # (Auto) 0.6 L Monocytes # (Auto) 0.4 Eosinophils # (Auto) 0.1 Basophils # (Auto) 0.0 CBC Comment Sodium Level 134 L Potassium Level 4.1 Chloride Level 103 Carbon Dioxide Level 27.8 Anion Gap 3 L Blood Urea Nitrogen 18 Creatinine 0.71 Estimated GFR/1.73 m2 > 90 BUN/Creatinine Ratio 25.4 H Glucose Level 116 H Calcium Level 7.8 L Total Bilirubin 4.5 H Aspartate Amino Transf (AST/SGOT) 63 H Alanine Aminotransferase (ALT/SGPT) 41 Alkaline Phosphatase 182 H Ammonia 56 H Total Protein 6.8 Albumin 2.3 L Globulin 4.5 H Albumin/Globulin Ratio 0.5 L Lipase 43 Chemistry Comments Urine Specimen Description Cln catch midstream Urine Color Yellow Urine Clarity Clear Urine pH 6.0 Urine Specific [place] >=1.030 Urine Protein Negative Urine Glucose (UA) Negative Urine Ketones Negative Urine Occult Blood Negative Urine Nitrite Negative Urine Bilirubin Negative Urine Urobilinogen 0.2 Urine Leukocyte Esterase Negative Urine Culture Indicated Not ind Volume Urine Centrifuged 10 ml Urine Comment Medical Decision Making Findings Patient presented to the emergency room for evaluation of hyperammonemia. Differentials include but are not limited to hyperammonemia, GI bleed, urinary tract infection, infectious process, lab error therefore emergent labs ordered. Labs show significantly decreased ammonia compared to reported ammonia level of 97. Patient was not encephalopathic and seems to tolerate his current ammonia level, that being said I do believe he would benefit from small course of lactulose with instructions to follow up with his doctor for re-evaluation and possible continuation of lactulose versus other. Bedside ultrasound performed by myself did show some ascitic fluid however it was it was called and left a message today to try and arrange for him to be seen in procedure clinic on outpatient basis. He had not feel he requires an emergent tap and given the fact it was platelet count it was low that it was significant risk associated with selective tap at this time. ER precautions discussed. Departure Disposition: HOME / SELF CARE / HOMELESS Impression: Primary Impression: Hyperammonemia Condition: Stable Discharge Instructions: Cirrhosis Additional Instructions: Call your doctor tomorrow to arrange for close follow up. Your ammonia level in our emergency room today was 56 and you show no signs of hepatic encephalopathy. We will begin you on a course of lactulose to decrease your ammonia levels. Titrate lactulose dosage to having 3-4 soft bowel movements a day. Avoid diarrhea Referrals: NO PRIMARY CARE PROVIDER (PCP) Prescriptions Lactulose (Lactulose) 10 Gram/15 Ml Solution 30 ML PO Q12H for constipation, #500 ML 0 Refills Prov: SHAHZAD PERES MD 12/06/24 Education Educated: Patient Educated regarding: diagnosis, treatment, need for follow up Signature Scribe Signature: No scribe Attestation: The note accurately reflects work and decisions made by me.Shahzad Peres MD 12/06/24 20:24 SHAHZAD PERES MD December 06, 2024 19:36
[2024-12-06 19:45] LABS: UA COLLECTION TYPE CLN CATCH MIDSTREAM
[2024-12-06 19:51] LABS: ALANINE AMINOTRANSFERASE 41 U/L (12-78); ALBUMIN 2.3 G/DL (3.4-5.0); ALKALINE PHOSPHATASE 182 IU/L (46-116); ANION GAP 3 (8-16); ASPARTATE AMINO TRANSFERASE 63 U/L (10-37); BILIRUBIN,TOTAL 4.5 MG/DL (0.1-1.0); BLOOD UREA NITROGEN 18 MG/DL (7-18); BUN/CREATININE RATIO 25.4 (10.0-20.0); CALCIUM 7.8 MG/DL (8.5-10.1); CHLORIDE 103 MMOL/L (99-107); CREATININE 0.71 MG/DL (0.60-1.10); GLUCOSE 116 MG/DL (70-104); LIPASE 43 U/L (16-77); POTASSIUM 4.1 MMOL/L (3.5-5.1); SODIUM 134 MMOL/L (135-145); TOTAL CARBON DIOXIDE 27.8 MMOL/L (24-32); eCRCL 130 ML/MIN; eGFR > 90 ML/MIN
[2024-12-06 19:52] LABS: ALBUMIN/GLOBULIN RATIO 0.5 (1.1-1.5); PLATELET COUNT 35 X10'3 (140-440); TOTAL PROTEIN 6.8 G/DL (6.4-8.2)
[2024-12-06] MEDS ORDERED: LACT-373 PO (20:24)
[2024-12-06 20:25] VITALS: BP 114/71; RESP 16; O2SAT 97
[2024-12-06] MEDS: lactulose 20gm/30ml cup PO ONE (20:31)
== END 2024-12-06 20:33 | disposition home or self-care (01) ==
LOC: ER 19:03
DX: E72.20 Disorder of urea cycle metabolism, unspecified (principal)
CPT/HCPCS: 80053; 81003; 82140; 83690; 85025; 99283; 99284

== ENCOUNTER 2024-12-30 22:58 | Emergency (ER) | payer MEDICAID ==
[~2024-12-30] VITALS: Ht 180.3 cm; Wt 118.0 kg
[~2024-12-30 22:58] MED LIST changes: +LACT-373 PO
[2024-12-30 23:13] VITALS: BP 112/62; PULSE 106; RESP 16; TEMP 99.2; O2SAT 97
--- NOTE | 2024-12-30 23:35 | RADIOLOGY REPORT ---
CHEST RADIOGRAPH Indication: left rib pain Technique: Single frontal view of the chest was obtained COMPARISON: DI CHEST,SINGLE VIEW on DOS: 08/17/24 FINDINGS: Lines and Tubes: None Lungs: Clear Pleura: No significant pleural effusion. No pneumothorax. Cardiomediastinal contours: Unremarkable IMPRESSION: No acute disease.
--- NOTE | 2024-12-31 00:23 | Physician Documentation ---
History of Present Illness ~ Chief Complaint: Rib pain Stated Complaint: RIB PAIN Primary Medical Doctor: CHANA Morales HPI This is a 54-year-old male who presents with left posterolateral rib pain after an injury sustained from rolling over from an air mattress onto a brick fireplace with some other objects on it week prior, patient reports he felt a pop in the injury occurred and has noticed in area of swelling to the area that has tender. Tetanus within 5 Years?: Yes Allergies: Coded Allergies: No Known Allergies (Unverified , 08/25/24) Active Prescriptions See Medication Reconciliation Form. Medication Reconciliation Scheduled Cephalexin*Monohydrate* (Keflex*), 2 CAP PO BID Ciprofloxacin HCl (Ciprofloxacin HCl), 1 TAB PO Q12H Furosemide* (Lasix*), 4.5 TAB PO BID, (Reported) Lactulose (Lactulose), 30 ML PO Q12H Spironolactone (Spironolactone), 1 TAB PO BID Past Medical History Past Medical History: Cirrohsis, Anemia Past Surgical History: noncontributory Alcohol Use: Sober Drug Use: marijuana Lives In: Home Review of Systems ROS Rib pain as stated above in the HPI, otherwise all systems are reviewed and negative. Physical Exam Vital Signs: Temperature: 99.2, Source: Oral, Heart Rate: 106, Respiratory Rate: 16, BP: 112/62, Pulse Oximetry: 97, Weight: 118.000 Oxygen Flow Rate: 0 Physical Exam VITALS: Reviewed and as above. GENERAL: Alert, nontoxic appearing, no apparent distress. HEENT: Sclera icterus RESPIRATORY: No increased work of breathing, no respiratory distress, speaking in full clear sentences CHEST: Left anterior lateral lower chest wall area of point tenderness to palpation with small area of swelling noted, no crepitus, no paradoxical movement SKIN: Mildly jaundice Progress Results/Orders Results/Orders Vital Signs 12/30/24 23:13 Temp 99.2 Pulse 106 Resp 16 B/P (MAP) 112/62 Pulse Ox 97 O2 Flow Rate 0 Medical Decision Making Findings MSE performed in triage and patient returned to ED lobby by nursing staff while awaiting available ED room, prior to patient being called to ED room patient appears to have eloped. Differential Dx:Considerations: Include: Chest wall contusion, Flail chest, Pneumothorax, Pulmonary contusion, Rib fracture, Tension pneumothorax Departure Impression: Primary Impression: Rib pain Referrals: NO PRIMARY CARE PROVIDER (PCP) Signature Scribe Signature: No scribe Attestation: The note accurately reflects work and decisions made by me.NICA Omalley 01/01/25 03:44 CHAPO ERICKSON December 31, 2024 00:23
== END 2024-12-31 02:04 | disposition left against medical advice (07) ==
LOC: ER 22:59
DX: R07.81 Pleurodynia (principal); D64.9 Anemia, unspecified; F12.90 Cannabis use, unspecified, uncomplicated; Z79.899 Other long term (current) drug therapy
CPT/HCPCS: 71045; 99283

== ENCOUNTER 2025-01-15 19:15 | Emergency (ER) | payer MEDICAID ==
[~2025-01-15] VITALS: Ht 180.3 cm; Wt 131.9 kg
[2025-01-15 19:21] VITALS: TEMP 98.1
--- NOTE | 2025-01-15 19:40 | Physician Documentation ---
History of Present Illness Chief Complaint: See Chief Complaint Stated Complaint: "I AM CONTAINING FLUID" OK to notify your PCP?: Yes Primary Medical Doctor: CHANA Morales Source: patient Mode of Arrival: POV Exam Limitations: no limitations HPI 54-year-old male presents with abdominal distention and pain. He has liver cirrhosis and receives paracentesis every 2 weeks at [facility]. He is next scheduled appointment is this coming up Friday, although he states that his belly has not been this big before and it is painful and tight. He has not taken any medication for his symptoms. He is requesting a paracentesis. Medication Reconciliation Allergies: Coded Allergies: No Known Allergies (Unverified , 08/25/24) Scheduled Cephalexin*Monohydrate* (Keflex*), 2 CAP PO BID Ciprofloxacin HCl (Ciprofloxacin HCl), 1 TAB PO Q12H Furosemide* (Lasix*), 4.5 TAB PO BID, (Reported) Lactulose (Lactulose), 30 ML PO Q12H Spironolactone (Spironolactone), 1 TAB PO BID Past Medical History Past Medical History: Cirrohsis, Anemia Past Surgical History: noncontributory Alcohol Use: Sober Drug Use: marijuana Lives In: Home Review of Systems All Other Systems at this time: Reviewed and Negative Physical Exam Vital Signs: RN Vital Signs have been reviewed: Yes, Temperature: 98.1, Source: Temporal, Heart Rate: 110, Respiratory Rate: 18, BP: 109/65, Pulse Oximetry: 97, Weight: 131.900 Oxygen Flow Rate: 0 Pulse Oximetry Reflects: adequate oxygenation Physical Exam General: Alert, no distress. HEENT: No injection, moist mucous membranes. Neck: Full range of motion. Respiratory: No respiratory distress, equal chest rise and fall. Chest: No accessory muscle use. Cardiovascular: Regular rate and rhythm. Gastrointestinal: Large, distended, tender to palpation. Extremities: Normal range of motion, no deformity. Neurologic: Oriented x4. Psychiatric: Normal mood and affect. Skin: Normal color, warm and dry. Physical exam below by Dr. Carter: General Appearance: No distress HEENT: Normal OP, moist oral mucosa, PERRL, EOMI Neck: supple, normal ROM, trachea midline Pulmonary: No respiratory distress, CTA, BS equal Cardiac: RRR, no murmur, rub or gallop, GI: DISTENDED, DULL TO PERCUSSION, SOFT, NONTENDER, normal bowel sounds, no guarding, no rebound Extremities: normal ROM, no swelling, non-tender Skin: intact, dry, warm, no rashes Neuro: AAOx3, speech is clear, no focal motor weakness Psych: normal affect, good eye contact, no apparent hallucination, normal speech Procedures Procedures Procedure - Paracentesis by me: Dr. Fernandez Patient consented, sterilely draped, full prep, gown, glove, mask, time out performed. Anesthesia: 1% lidocaine locally, 8 mL Location: Right Lower Quadrant Device: Needle aspiration with [id number] drainage Technique: Z-track Results: 8 liters clear fluid, without bleeding No complications. ED Ultrasound: Fluid pocket localized by me under concurrent ultrasound guidance. Real time image archived in the medical record confirming anatomy. Ultrasound Date: Jan 16, 2025 Progress Results/Orders Results/Orders Vital Signs 01/15/25 19:21 Temp 98.1 Pulse 110 Resp 18 B/P (MAP) 109/65 Pulse Ox 97 O2 Flow Rate 0 Medical Decision Making Findings Differential diagnosis includes but is not limited to: ASCITES, LIVER CIRRHOSIS SECONDARY TO ALCOHOL USE Emergency department course/medical decision-making: PATIENT IS A 54-YEAR-OLD MAN WITH KNOWN LIVER FAILURE SECONDARY TO PAST ALCOHOL USE. PATIENT HAS BEEN GETTING OUTPATIENT PARACENTESIS FOR RECURRENT ASCITES. PATIENT DOES NOT HAVE ANY SYMPTOMS OF SUBACUTE OR ACUTE BACTERIAL PERITONITIS. PATIENT IS AFEBRILE. PATIENT DOES NOT HAVE ANY ACUTE SYMPTOMS OF ILLNESS. PATIENT DOES NOT REQUIRE BLOOD WORK OR IMAGING. PARACENTESIS IS PERFORMED FOR THE PATIENT BECAUSE HE DOES NOT FEEL HE CAN WAIT UNTIL HIS SCHEDULED APPOINTMENT THIS FRIDAY. PARACENTESIS IS PERFORMED WITHOUT COMPLICATIONS. PROXIMALLY 8 L OF CLEAR YELLOW ASCITIC FLUID WAS DRAINED WITHOUT COMPLICATIONS. Departure Time of Disposition: 02:59 Disposition: 01 HOME / SELF CARE / HOMELESS Impression: Primary Impression: Ascites Qualified Codes: K70.31 - Alcoholic cirrhosis of liver with ascites Condition: Improved Discharge Instructions: Ascites, Paracentesis, Care After Education Educated: Patient, Family Educated regarding: diagnosis, treatment Additional Comment Medical Screen Exam This patient recieved a medical screening examination. After reviewing the individual's medical complaints with presenting symptoms and performing an appropriate physical examination, it was determined that no immediate life- threatening emergency medical condition is present. This individual is also not a women having contractions. Signature Scribe Signature: No scribe Attestation: No scribe MELANIE TORRES Jan 15, 2025 19:40 ALONZO CARTER MD Jan 16, 2025 03:05
[2025-01-16] MEDS: LIDOcaine 1% W/epiNEPHrine 1:100,000 20ml vial SQ ONE (00:55)
[2025-01-16 03:23] VITALS: BP 112/65; PULSE 90; RESP 15; O2SAT 99
== END 2025-01-16 03:25 | disposition home or self-care (01) ==
LOC: ER 19:16
DX: R18.8 Other ascites (principal); F12.90 Cannabis use, unspecified, uncomplicated; D64.9 Anemia, unspecified; Z79.899 Other long term (current) drug therapy
CPT/HCPCS: 49083; 99285; A6449

== ENCOUNTER 2025-05-25 12:52 | Emergency (ER) | payer MEDICAID ==
[~2025-05-25] VITALS: Ht 175.3 cm; Wt 121.0 kg
--- NOTE | 2025-05-25 16:06 | Physician Documentation ---
History of Present Illness General Chief Complaint: Abdominal Pain Stated Complaint: PARACENTESIS Time Seen by MD: 16:05 OK to notify your PCP?: No Primary Medical Doctor: CHANA Morales Source: patient Mode of Arrival: POV Exam Limitations: no limitations History of Present Illness Initial Comments 54-year-old male, with history of alcoholic cirrhosis of the liver, presents requesting paracentesis and complaining of diffuse abdominal swelling, progressively worsening over the last week. The patient reports he normally has a paracentesis performed at [facility] every week, however his appointment this week was canceled because the PA is out of town. They scheduled him for 06/02/2025 and the patient states this is too far out. He reports some diffuse abdominal pain due to swelling. He denies any fever. He has been taking his prescribed medications. Medication Reconciliation Allergies: Coded Allergies: No Known Allergies (Unverified , 05/25/25) Scheduled Cephalexin*Monohydrate* (Keflex*), 2 CAP PO BID Ciprofloxacin HCl (Ciprofloxacin HCl), 1 TAB PO Q12H Furosemide* (Lasix*), 4.5 TAB PO BID, (Reported) Lactulose (Lactulose), 30 ML PO Q12H Spironolactone (Spironolactone), 1 TAB PO BID Past Medical History Past Medical History: *GI/HEPATOBILIARY*, Cirrohsis, Anemia, Liver Disease Past Surgical History: noncontributory Alcohol Use: Sober Drug Use: marijuana Lives In: Home Review of Systems All Other Systems at this time: Reviewed and Negative ROS As stated above in the HPI, otherwise all systems are reviewed and negative. Physical Exam Physical Exam Vital Signs: RN Vital Signs have been reviewed: Yes, Temperature: 97.1, Source: Temporal, Heart Rate: 86, Respiratory Rate: 18, BP: 115/74, Pulse Oximetry: 100, Weight: 121.000 Oxygen Flow Rate: 0 Pulse Oximetry Reflects: adequate oxygenation Physical Exam VITALS: Reviewed and as above. GENERAL: Alert, no apparent distress. HEENT: Icteric sclera. Normocephalic, atraumatic, PERRL, EOMI, dry mucosa RESPIRATORY: Lungs clear, normal breath sounds, no respiratory distress. CHEST: No accessory muscle use, no retractions CV: Regular rate, rhythm, no edema, no murmur, No: JVD GI: Diffusely distended abdomen, mild diffuse tenderness, area of echymosis to right lower abdomen. Soft, bowels sounds present SKIN: Warm and dry, no rash NEURO: Oriented x4, No motor or sensory deficit PSYCH: Normal mood and affect, no agitation Progress Results/Orders Reviewed/noted all lab results: Yes Results/Orders Medications Received in ER Medications (Trade) Dose Ordered Sig/Judd Route PRN Reason Start Time Stop Time Status Last Admin Dose Admin (albumin (human) 25% 100ml IV) 200 ml ONCE ONCE IV 05/25/25 17:05 05/25/25 17:06 DC 05/25/25 18:03 200 ML Vital Signs 05/25/25 05/25/25 05/25/25 05/25/25 13:07 16:01 16:01 17:30 Temp 97.1 Pulse 93 86 87 Resp 18 18 18 18 B/P (MAP) 107/60 115/74 (88) 116/78 (91) Pulse Ox 97 100 100 O2 Flow Rate 0 0 05/25/25 05/25/25 17:45 18:19 Pulse 89 84 Resp 18 20 B/P (MAP) 118/74 (89) 120/68 (85) Pulse Ox 98 100 O2 Flow Rate 0 0 Medical Decision Making Additional information obtaine: old records Findings Procedure - Paracentesis by me: Patient consented, sterilely draped, full prep, gown, glove, mask, time out performed. Anesthesia: 1% lidocaine locally, 5cc Location: Right Lower Quadrant Device: Needle aspiration with [id number]-[id number] drainage Technique: Z-track Results: [ 9] liters clear fluid, without bleeding No complications. Differential Diagnosis Ascites, obesity, intra-abdominal mass hemoperitoneum Departure Disposition: HOME / SELF CARE / HOMELESS Impression: Primary Impression: Ascites Qualified Codes: R18.8 - Other ascites Condition: Stable Discharge Instructions: Ascites Signature Scribe Signature: Scribed for Rogelio Funes MD by Bishop Martinez . 05/25/25 16:41 Attestation: The note accurately reflects work and decisions made by me.Shahzad Peres MD 05/25/25 18:27 ROGELIO FUNES MD May 25, 2025 16:06 BISHOP DUBOSE May 25, 2025 16:46 SHAHZAD PERES MD May 25, 2025 18:28
[2025-05-25] MEDS: albumin (human) 25% 100 ML IV solution IV ONE (18:03)
[2025-05-25 19:30] VITALS: BP 119/74; PULSE 90; RESP 18; TEMP 97.1; O2SAT 100
== END 2025-05-25 19:32 | disposition home or self-care (01) ==
LOC: ER 12:53
DX: R18.8 Other ascites (principal); D64.9 Anemia, unspecified; F12.90 Cannabis use, unspecified, uncomplicated; Z79.899 Other long term (current) drug therapy
CPT/HCPCS: 49082; 96374; 99285; P9047

== ENCOUNTER 2025-06-13 11:40 | Emergency (ER) | payer MEDICAID ==
[~2025-06-13] VITALS: Ht 175.3 cm; Wt 119.6 kg
--- NOTE | 2025-06-13 11:49 | ELECTROCARDIOGRAPH REPORT ---
[facility] Test Date: 2025-06-13 Test Time: 11:48:20 Pat Name: ROXIE BENNETT Department: EMERGENCY ROOM Room: Gender: M Tc Operator: CONNOR : 1970 Requested By: BEN WINTER Order Number: [id number] Reading MD: Dr. JULIÁN Graff Measurements Intervals [place] Rate: 90 P: 42 NM: 193 QRS: -35 QRSD: 102 T: -18 QT: 381 QTc: 467 Interpretive Statements Sinus rhythm Low voltage, precordial leads Abnormal R-wave progression, late transition Left ventricular hypertrophy Nonspecific T abnormalities, diffuse leads Electronically Signed On 06-15-2025 19:23:[address] JULIÁN Graff Please click the below link to view image of tracing.
[2025-06-13 12:01] VITALS: TEMP 98.5
--- NOTE | 2025-06-13 12:41 | RADIOLOGY REPORT ---
AP portable chest Comparison: 12/30/2024 CLINICAL INDICATION: CP FINDINGS: Heart size slightly enlarged with a left ventricular configuration. Aorta is tortuous. No infiltrates or effusions. Atelectasis right lung base due to suboptimal inspiration. IMPRESSION: 1. No acute cardiopulmonary pathology
[2025-06-13 14:13] LABS: MEAN PLATELET VOLUME 10.1 FL (7.4-10.4); RED CELL DISTRIBUTION WIDTH 15.6 % (11.5-14.5)
[2025-06-13 14:34] LABS: CREATININE 0.71 MG/DL (0.60-1.10); PRO BRAIN NATRIURETIC PEPTIDE < 30 PG/ML (0-125); TOTAL CARBON DIOXIDE 28.7 MMOL/L (24-32); eCRCL 120 ML/MIN; eGFR > 90 ML/MIN
--- NOTE | 2025-06-13 15:56 | Physician Documentation ---
History of Present Illness ~ Chief Complaint: Chest Wall Pain Stated Complaint: CHEST PAIN Time Seen by MD: 14:51 Primary Medical Doctor: CHANA Morales Mode of Arrival: Ambulatory HPI 55-year-old male who presents to the emergency department for evaluation of right and left breast pain. Patient on liver transplant list and receiving medications. Primary care physician's reassured patient that likely the discomfort is secondary to the medications and current pathology yet referred to the emergency department for evaluation. No shortness a breath, palpitations near-syncope or dependent edema. Patient reports breast nipple and tissue tenderness. No reported fevers or obvious abscess or rash. Medication Reconciliation Allergies: Coded Allergies: No Known Allergies (Unverified , 06/13/25) Scheduled Cephalexin*Monohydrate* (Keflex*), 2 CAP PO BID Ciprofloxacin HCl (Ciprofloxacin HCl), 1 TAB PO Q12H Furosemide* (Lasix*), 4.5 TAB PO BID, (Reported) Lactulose (Lactulose), 30 ML PO Q12H Spironolactone (Spironolactone), 1 TAB PO BID Past Medical History Past Medical History: *GI/HEPATOBILIARY*, Cirrohsis, Anemia, Liver Disease Past Surgical History: noncontributory Alcohol Use: Sober Drug Use: marijuana Lives In: Home Review of Systems All Other Systems at this time: Reviewed and Negative Cardiovascular Breast tissue pain Physical Exam Vital Signs: RN Vital Signs have been reviewed: Yes, Temperature: 98.5, Source: Temporal, Heart Rate: 92, Respiratory Rate: 18, BP: 109/75, Pulse Oximetry: 95, Weight: 119.600 Oxygen Flow Rate: 0 General Appearance: alert, WD/WN, mild distress Neck: normal inspection Chest: tenderness reproducible (Left and right breast without obvious nodule, fluctuance or erythema) Gastrointestinal: liver enlargement Extremities: normal inspection, normal capillary refill Neurologic: oriented x4 Psychiatric: normal mood/affect Skin: warm/dry, other (Icterus) Progress Results/Orders Results/Orders Vital Signs 06/13/25 06/13/25 06/13/25 12:01 15:43 15:58 Temp 98.5 Pulse 92 87 Resp 16 18 18 B/P (MAP) 109/75 158/74 Pulse Ox 95 98 O2 Flow Rate 0 Laboratory Tests Test 06/13/25 13:54 06/13/25 15:11 White Blood Count 4.3 L Red Blood Count 3.89 L Hemoglobin 13.8 L Hematocrit 39.4 L Mean Corpuscular Volume 101.4 H Mean Corpuscular Hemoglobin 35.4 H Mean Corpuscular Hemoglobin Concent 34.9 Red Cell Distribution Width 15.6 H Platelet Count 32 *L Mean Platelet Volume 10.1 Neutrophils (%) (Auto) 83.2 H Lymphocytes (%) (Auto) 7.4 L Monocytes (%) (Auto) 7.4 Eosinophils (%) (Auto) 1.2 Basophils (%) (Auto) 0.8 Neutrophils # (Auto) 3.6 Lymphocytes # (Auto) 0.3 L Monocytes # (Auto) 0.3 Eosinophils # (Auto) 0.1 Basophils # (Auto) 0.0 CBC Comment Sodium Level 133 L Potassium Level 4.3 Chloride Level 102 Carbon Dioxide Level 28.7 Anion Gap 2 L Blood Urea Nitrogen 17 Creatinine 0.71 Estimated GFR/1.73 m2 > 90 BUN/Creatinine Ratio 23.9 H Glucose Level 115 H Calcium Level 7.7 L Troponin I High Sensitivity 5 5 Pro-B-Type Natriuretic Peptide < 30 Albumin 3.0 L Chemistry Comments Troponin I High Sens Percent Delta 0 Troponin I Hi Sens Absolute Change 0 Medical Decision Making Additional information obtaine: family Findings Examination and history, laboratory screening and x-ray imaging EKG all reassuring. Gynecomastia is secondary to liver failure in current medications without suspected mastitis,abscess, vascular obstruction or tumor mass Heart Score: 3 Differential Dx:Considerations: Include: chest wall pain, esophageal reflux/spasm, gastritis, myocardial infarction, pericarditis, pleuritis, pneumonia, pneumothorax, pulmonary embolus Departure Disposition: HOME / SELF CARE / HOMELESS Impression: Primary Impression: Gynecomastia Additional Impression: Liver failure Condition: Stable Discharge Instructions: Gynecomastia, Adult Additional Instructions: Your labs and imaging today all reassuring. Examination is also reassuring. Please follow up with the [facility] and primary care physician for further evaluation regarding the Gynecomastia . Thank you for visiting [facility]. Referrals: NO PRIMARY CARE PROVIDER (PCP) Education Educated: Patient Educated regarding: diagnosis, treatment, prognosis, need for follow up Signature Scribe Signature: . Attestation: . PHAM VILLARREAL PAC Jun 13, 2025 15:56
[2025-06-13 15:58] VITALS: BP 158/74; PULSE 87; RESP 18; O2SAT 98
== END 2025-06-13 16:00 | disposition home or self-care (01) ==
LOC: ER 11:41
DX: N62 Hypertrophy of breast (principal); K72.90 Hepatic failure, unspecified without coma; F12.90 Cannabis use, unspecified, uncomplicated; D64.9 Anemia, unspecified; Z79.899 Other long term (current) drug therapy
CPT/HCPCS: 36415; 71045; 80048; 83880; 84484; 85025; 93005; 99285